=== PATIENT | male | born 1995 | race Caucasian/White ===

== ENCOUNTER 2016-12-28 23:49 | Emergency (ER) | payer OTHER ==
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
[2016-12-28] MEDS ORDERED: ALBUTEROL17 GM INH (23:58)
== END 2016-12-29 03:13 | disposition home or self-care (01) ==
LOC: SED 23:49
DX: S13.4XXA Sprain of ligaments of cervical spine, initial encounter (principal); S23.3XXA Sprain of ligaments of thoracic spine, initial encounter; S33.5XXA Sprain of ligaments of lumbar spine, initial encounter; V49.10XA Passenger injured in collision with unspecified motor vehicles in nontraffic accident, initial encounter
CPT/HCPCS: 71010; 72040; 72072; 72100; 72170; 99284